=== PATIENT | male | born 1935 | race Caucasian/White ===

== ENCOUNTER 2019-12-22 11:19 | Day surgery (SDC) | payer MEDICARE, BC ==
[~2019-12-22 11:19] MED LIST: ASPI81TA50 PO; CARV6.252 PO; CELE200C PO; GLYB2.5T2 PO; SIMV10TA18 PO; TICA90TA PO
[2019-12-22] MEDS ORDERED: LIDOCAINE 2%, 20ML ONE (11:53)
== END 2019-12-22 12:30 | disposition home or self-care (01) ==
LOC: CACL 11:19
PROVIDERS: ATTEND Internal Medicine Cardiovascular Disease
DX: Z45.09 Encounter for adjustment and management of other cardiac device (principal); I10 Essential (primary) hypertension; E11.9 Type 2 diabetes mellitus without complications; I25.10 Atherosclerotic heart disease of native coronary artery without angina pectoris; E78.00 Pure hypercholesterolemia, unspecified; Z79.82 Long term (current) use of aspirin; Z79.899 Other long term (current) drug therapy; Z86.73 Personal history of transient ischemic attack (TIA), and cerebral infarction without residual deficits; Z88.0 Allergy status to penicillin
CPT/HCPCS: 33286